=== PATIENT | male | born 1945 | race Caucasian/White ===

== ENCOUNTER 2024-05-21 20:51 | Inpatient (IN) | payer MEDICARE, MEDICAID ==
[~2024-05-21] VITALS: Ht 188 cm; Wt 81.0 kg
[~2024-05-21 20:51] MED LIST: AMLO2.5T2 PO; CARV25TA2 PO; GLUC-133 PO; HYDR-4353 PO; METF500T PO; OMEG1CAP2; PRAV10TA39 PO; SENN-362; SPIR25TA5 PO; VIT D3
[2024-05-21] MEDS: VANCOMYCIN 1,500MG inj. 1,500 MG in normal saline 500ml IV soln 300 ML IV SCH (21:53)
[2024-05-21 22:16] LABS: BASOPHILS % (AUTO) 0.3 % (0-1); EOSINOPHILS % (AUTO) 0.1 % (0-6); HEMATOCRIT 35.4 % (42.0-52.0); HEMOGLOBIN 12.1 g/dl (14.0-17.9); LYMPHOCYTES # (AUTO) 1.1 X10'3 (1.1-4.8); LYMPHOCYTES % (AUTO) 11.3 % (21-51); MEAN CORPUSCULAR HEMOGLOBIN 29.3 PG (27.0-31.0); MEAN CORPUSCULAR VOLUME 86.3 FL (78-98); MONOCYTES # (AUTO) 1.2 X10'3 (0-0.9); NEUTROPHILS # (AUTO) 7.6 X10'3 (1.8-7.7); NEUTROPHILS % (AUTO) 76.3 % (42-75); PLATELET COUNT 113 X10'3 (140-440); RED BLOOD COUNT 4.11 X10'6 (4.70-6.10); RED CELL DISTRIBUTION WIDTH 16.8 % (11.5-14.5); WHITE BLOOD COUNT 9.9 X10'3 (4.5-11.0)
[2024-05-21 22:26] LABS: ALANINE AMINOTRANSFERASE 102 U/L (12-78); ALBUMIN 2.3 G/DL (3.4-5.0); ALBUMIN/GLOBULIN RATIO 0.5 (1.1-1.5); ALKALINE PHOSPHATASE 128 IU/L (46-116); ANION GAP 5 (8-16); ASPARTATE AMINO TRANSFERASE 106 U/L (10-37); BILIRUBIN,TOTAL 0.9 MG/DL (0.1-1.0); BLOOD UREA NITROGEN 14 MG/DL (7-18); BUN/CREATININE RATIO 15.6 (10.0-20.0); CHLORIDE 102 MMOL/L (99-107); GLUCOSE 160 MG/DL (70-104); POTASSIUM 4.3 MMOL/L (3.5-5.1); SODIUM 135 MMOL/L (135-145); TOTAL CARBON DIOXIDE 28.2 MMOL/L (24-32); TOTAL PROTEIN 7.2 G/DL (6.4-8.2); eCRCL 78 ML/MIN; eGFR 82 ML/MIN
[2024-05-21] MEDS: normal saline 1000ml 1,000 ML IV ONE ×2 (22:52→23:36)
[2024-05-21] MEDS ORDERED: magnesium hydroxide 30ml (MOM) UD suspension PO PRN (23:40)
[2024-05-21] MEDS ORDERED: magnesium sulf-water 4G/100mL 100 ML IV PRN (23:40)
[2024-05-21] MEDS ORDERED: ondansetron/PF 4mg/2ml inj IV PRN (23:40)
[2024-05-21] MEDS ORDERED: magnesium Cl slow-release 64mg tablet PO PRN (23:40)
[2024-05-21] MEDS ORDERED: magnesium sulf-water 2g/50mL 50 ML IV PRN (23:40)
[2024-05-21] MEDS ORDERED: morphine 2 MG/ML inj. syringe IV PRN (23:40)
[2024-05-21] MEDS ORDERED: mag hydrox/Alum hydrox/simeth 30ml oral suspension PO PRN (23:40)
[2024-05-21] MEDS ORDERED: acetaminophen 325mg tablet PO PRN (23:40)
[2024-05-21] MEDS ORDERED: potassium Cl 20 mEq SR tablet PO PRN ×2 (23:40)
[2024-05-21] MEDS ORDERED: potassium Cl 40MEQ/1/2NS 520ml 520 ML IV PRN (23:40)
[2024-05-22] VITALS (7 sets, daily range): BP systolic 117–133; BP diastolic 55–69; PULSE 58–87; RESP 14–15; TEMP 98–98.4; O2SAT 97–100
[2024-05-22] LABS: HEMOGLOBIN A1C 5.1 % (4.5-6.2)
[2024-05-22] MEDS: normal saline 1000ml 1,000 ML IV SCH (00:28)
[2024-05-22] MEDS: ceFAZolin/D5W- 1GM premix 50 ML IV SCH (00:33)
[2024-05-22 01:46] LABS: BILIRUBIN,URINE NEGATIVE (Neg); CLARITY,URINE CLEAR (Clear); COLOR,URINE YELLOW (Yellow); GLUCOSE, URINE NEGATIVE (Neg); KETONES,URINE NEGATIVE (Neg); LEUKOCYTE ESTERASE ,URINE NEGATIVE (Neg); NITRITES, URINE NEGATIVE (Neg); OCCULT BLOOD,URINE TRACE-INTACT (Neg); PH,URINE 5.5 (4.8-8.0); PROTEIN,URINE 30 mg/dl (Neg)
[2024-05-22 01:48] LABS: UA COLLECTION TYPE NON-SPECIFIED
[2024-05-22 01:59] LABS: BACTERIA,URINE NONE SEEN /HPF (Neg); RBC,URINE 0-2 /HPF (0-2); SQUAMOUS EPITHELIAL CELL,UR FEW /LPF (FEW); WBC,URINE 0-4 /HPF (0-4)
[2024-05-22] MEDS ORDERED: ATOR10TA87 PO (04:34)
[2024-05-22] MEDS ORDERED: BISA10SU60 RC (04:56)
[2024-05-22] MEDS ORDERED: SENN-360 PO (05:05)
[2024-05-22] MEDS ORDERED: LISI2.5T14 PO (05:05)
[2024-05-22] MEDS ORDERED: DOCU-148 PO (05:05)
[2024-05-22] MEDS ORDERED: FAMO-280 PO (05:05)
[2024-05-22] MEDS ORDERED: ASPI-611 PO (05:05)
[2024-05-22] MEDS ORDERED: POLY119P2 PO (05:05)
[2024-05-22] MEDS ORDERED: FERR325T28 PO (05:05)
[2024-05-22] MEDS: K and/or MAG REPLACEMENT MC SCH (08:00)
[2024-05-22] MEDS: heparin, porcine 5000 units/ml vial SQ SCH (08:00)
[2024-05-22] MEDS: docusate sod 100mg capsule PO SCH (08:00)
[2024-05-22 09:10] LABS: BASOPHILS % (AUTO) 0.3 % (0-1); EOSINOPHILS % (AUTO) 0.1 % (0-6); HEMATOCRIT 33.4 % (42.0-52.0); HEMOGLOBIN 11.3 g/dl (14.0-17.9); LYMPHOCYTES # (AUTO) 1.1 X10'3 (1.1-4.8); LYMPHOCYTES % (AUTO) 12.7 % (21-51); MEAN CORPUSCULAR HEMOGLOBIN 29.8 PG (27.0-31.0); MEAN CORPUSCULAR VOLUME 87.7 FL (78-98); MEAN PLATELET VOLUME 9.1 FL (7.4-10.4); MONOCYTES # (AUTO) 1.1 X10'3 (0-0.9); MONOCYTES % (AUTO) 13.2 % (2-12); NEUTROPHILS # (AUTO) 6.1 X10'3 (1.8-7.7); NEUTROPHILS % (AUTO) 73.7 % (42-75); PLATELET COUNT 99 X10'3 (140-440); RED CELL DISTRIBUTION WIDTH 16.7 % (11.5-14.5); WHITE BLOOD COUNT 8.3 X10'3 (4.5-11.0)
[2024-05-22 09:26] LABS: % IRON SATURATION 15 % (11-46); IRON 28 UG/DL (53-167); TOTAL IRON BINDING CAPACITY 185 UG/DL (259-388)
[2024-05-22 09:57] LABS: ALANINE AMINOTRANSFERASE 75 U/L (12-78); ALBUMIN/GLOBULIN RATIO 0.4 (1.1-1.5); ALKALINE PHOSPHATASE 112 IU/L (46-116); ANION GAP 7 (8-16); ASPARTATE AMINO TRANSFERASE 72 U/L (10-37); BILIRUBIN,TOTAL 0.8 MG/DL (0.1-1.0); BLOOD UREA NITROGEN 12 MG/DL (7-18); BUN/CREATININE RATIO 15.2 (10.0-20.0); CALCIUM 8.3 MG/DL (8.5-10.1); CHLORIDE 105 MMOL/L (99-107); CREATINE KINASE 44 U/L (39-308); CREATININE 0.79 MG/DL (0.60-1.10); FERRITIN 203 NG/ML (26-388); GLUCOSE 121 MG/DL (70-104); POTASSIUM 3.7 MMOL/L (3.5-5.1); SODIUM 136 MMOL/L (135-145); TOTAL CARBON DIOXIDE 23.8 MMOL/L (24-32); TOTAL PROTEIN 6.5 G/DL (6.4-8.2); eCRCL 88 ML/MIN; eGFR > 90 ML/MIN
[2024-05-22] MEDS: CefTRIAXone/D5W-Rocephin 1gm 50 ML IV ONE (10:06)
[2024-05-22] MEDS: vancomycin/NS 1 GM ADD-VANTAGE 250 ML IV SCH (10:38)
[2024-05-22] MEDS ORDERED: CHOL10006 PO (14:33)
[2024-05-22] MEDS ORDERED: docusate sod 100mg capsule PO SCH (20:00)
[2024-05-22] MEDS: lisinopril 2.5mg tablet PO SCH (20:10)
[2024-05-22] MEDS: atorvastatin 10mg tablet PO SCH (20:10)
[2024-05-23 06:00] VITALS: BP 126/72; PULSE 72; RESP 13; TEMP 96.6; O2SAT 96
[2024-05-23] MEDS: aspirin 81mg, enteric-coated 1 TAB TABLET.DR PO SCH (07:54)
[2024-05-23] MEDS: CefTRIAXone/D5W-Rocephin 1gm 50 ML IV SCH (07:55)
[2024-05-23] MEDS: polyethylene glycol 3350 17gm powd pack PO SCH (07:55)
[2024-05-23 08:00] VITALS: BP 153/73; PULSE 75; RESP 16; O2SAT 96
[2024-05-23] MEDS: VANCOMYCIN LEVEL IV ONE (09:30)
[2024-05-23 09:58] LABS: BASOPHILS % (AUTO) 0.8 % (0-1); EOSINOPHILS % (AUTO) 0.4 % (0-6); HEMATOCRIT 35.2 % (42.0-52.0); HEMOGLOBIN 11.7 g/dl (14.0-17.9); LYMPHOCYTES # (AUTO) 1.2 X10'3 (1.1-4.8); LYMPHOCYTES % (AUTO) 18.5 % (21-51); MEAN CORPUSCULAR HEMOGLOBIN 28.8 PG (27.0-31.0); MEAN CORPUSCULAR HGB CONC 33.3 g/dL (33.0-36.5); MEAN CORPUSCULAR VOLUME 86.4 FL (78-98); MEAN PLATELET VOLUME 8.7 FL (7.4-10.4); MONOCYTES # (AUTO) 0.6 X10'3 (0-0.9); MONOCYTES % (AUTO) 9.6 % (2-12); NEUTROPHILS # (AUTO) 4.5 X10'3 (1.8-7.7); NEUTROPHILS % (AUTO) 70.7 % (42-75); PLATELET COUNT 111 X10'3 (140-440); RED BLOOD COUNT 4.07 X10'6 (4.70-6.10); RED CELL DISTRIBUTION WIDTH 16.8 % (11.5-14.5); WHITE BLOOD COUNT 6.4 X10'3 (4.5-11.0)
[2024-05-23 10:00] VITALS: BP 153/73; PULSE 75; RESP 18; TEMP 98.1; O2SAT 97
[2024-05-23 10:24] LABS: ALANINE AMINOTRANSFERASE 84 U/L (12-78); ALBUMIN 1.8 G/DL (3.4-5.0); ALBUMIN/GLOBULIN RATIO 0.4 (1.1-1.5); ALKALINE PHOSPHATASE 107 IU/L (46-116); ANION GAP 7 (8-16); ASPARTATE AMINO TRANSFERASE 97 U/L (10-37); BILIRUBIN,TOTAL 0.5 MG/DL (0.1-1.0); BLOOD UREA NITROGEN 9 MG/DL (7-18); BUN/CREATININE RATIO 13.6 (10.0-20.0); CALCIUM 8.2 MG/DL (8.5-10.1); CHLORIDE 106 MMOL/L (99-107); CREATININE 0.66 MG/DL (0.60-1.10); GLUCOSE 108 MG/DL (70-104); MAGNESIUM 1.9 MG/DL (1.5-2.4); POTASSIUM 3.9 MMOL/L (3.5-5.1); SODIUM 138 MMOL/L (135-145); TOTAL PROTEIN 6.2 G/DL (6.4-8.2); eCRCL 106 ML/MIN; eGFR > 90 ML/MIN
[2024-05-23] MEDS: calcium carbonate 500mg chew tablet PO PRN (12:18)
[2024-05-23 18:00] VITALS: BP 127/59; PULSE 78; RESP 19; TEMP 97.6; O2SAT 98
[2024-05-23] MEDS: lactose-reduced food (Ensure Enlive) - 237ml bottle PO SCH (18:00)
[2024-05-23 20:00] VITALS: BP 139/75; PULSE 72; RESP 16; O2SAT 98
[2024-05-23 22:00] VITALS: BP 144/91; PULSE 90; RESP 19; TEMP 97.8; O2SAT 100
[2024-05-23] MEDS: pantoprazole 40mg Tablet.DR PO ONE (23:21)
[2024-05-24] MEDS: calcium carbonate 500mg chew tablet PO ONE (02:29)
[2024-05-24 05:18] LABS: BASOPHILS % (AUTO) 0.4 % (0-1); EOSINOPHILS % (AUTO) 0.5 % (0-6); LYMPHOCYTES % (AUTO) 19.1 % (21-51); MEAN CORPUSCULAR HGB CONC 33.2 g/dL (33.0-36.5); MEAN CORPUSCULAR VOLUME 87.2 FL (78-98); MEAN PLATELET VOLUME 8.8 FL (7.4-10.4); MONOCYTES # (AUTO) 0.6 X10'3 (0-0.9); MONOCYTES % (AUTO) 11.9 % (2-12); NEUTROPHILS # (AUTO) 3.5 X10'3 (1.8-7.7); NEUTROPHILS % (AUTO) 68.1 % (42-75); PLATELET COUNT 122 X10'3 (140-440); RED BLOOD COUNT 3.78 X10'6 (4.70-6.10); RED CELL DISTRIBUTION WIDTH 16.4 % (11.5-14.5); WHITE BLOOD COUNT 5.2 X10'3 (4.5-11.0)
[2024-05-24 05:45] LABS: ALANINE AMINOTRANSFERASE 75 U/L (12-78); ALBUMIN 1.7 G/DL (3.4-5.0); ALBUMIN/GLOBULIN RATIO 0.4 (1.1-1.5); ALKALINE PHOSPHATASE 120 IU/L (46-116); ANION GAP 9 (8-16); ASPARTATE AMINO TRANSFERASE 76 U/L (10-37); BILIRUBIN,TOTAL 0.4 MG/DL (0.1-1.0); BLOOD UREA NITROGEN 15 MG/DL (7-18); BUN/CREATININE RATIO 24.2 (10.0-20.0); CALCIUM 8.4 MG/DL (8.5-10.1); CHLORIDE 107 MMOL/L (99-107); CREATININE 0.62 MG/DL (0.60-1.10); GLUCOSE 131 MG/DL (70-104); MAGNESIUM 1.8 MG/DL (1.5-2.4); POTASSIUM 3.8 MMOL/L (3.5-5.1); SODIUM 141 MMOL/L (135-145); TOTAL CARBON DIOXIDE 25.4 MMOL/L (24-32); TOTAL PROTEIN 5.8 G/DL (6.4-8.2); eCRCL 113 ML/MIN; eGFR > 90 ML/MIN
[2024-05-24 06:00] VITALS: BP 145/82; PULSE 90; RESP 20; TEMP 97.4; O2SAT 98
[2024-05-24 10:00] VITALS: RESP 19; O2SAT 99
== END 2024-05-24 17:05 | DRG 637 ==
LOC: ER 20:52 → ED HOLD 23:12 → SUR 3N 05-22 07:29
PROVIDERS: ADMIT Internal Medicine; ATTEND Family Medicine
DX: E11.628 Type 2 diabetes mellitus with other skin complications (principal); G93.41 Metabolic encephalopathy; E87.20 Acidosis, unspecified; I69.351 Hemiplegia and hemiparesis following cerebral infarction affecting right dominant side; I48.20 Chronic atrial fibrillation, unspecified; L03.115 Cellulitis of right lower limb; Z66 Do not resuscitate; E78.5 Hyperlipidemia, unspecified; E11.42 Type 2 diabetes mellitus with diabetic polyneuropathy; D64.9 Anemia, unspecified; I25.10 Atherosclerotic heart disease of native coronary artery without angina pectoris; F03.90 Unspecified dementia, unspecified severity, without behavioral disturbance, psychotic disturbance, mood disturbance, and anxiety; I10 Essential (primary) hypertension; Z79.84 Long term (current) use of oral hypoglycemic drugs; Z79.899 Other long term (current) drug therapy; Z95.1 Presence of aortocoronary bypass graft; I25.2 Old myocardial infarction
CPT/HCPCS: 36415; 80053; 80202; 81001; 82550; 82728; 83036; 83540; 83550; 83605; 83735; 84145; 85025; 87040; 87081; 92508; 92616; 93971; 96361; 96365; 97161; 97530; 97535; 99291; A6212; A6213; A6223; A6250; A6253; A6446; A6590; C1758; G0378; J0690; J0696; J3370; J7030; J7040

== ENCOUNTER → 2024-05-31 | Emergency (ER) | payer MEDICARE, MEDICAID ==
[~2024-05-31] VITALS: Ht 188 cm; Wt 68.0 kg
[~2024-05-31] MED LIST changes: -AMLO2.5T2 PO; +ASPI-611 PO; +ATOR10TA87 PO; +BISA10SU60 RC; -CARV25TA2 PO; +CHOL10006 PO; +DOCU-148 PO; +FERR325T28 PO; -GLUC-133 PO; -HYDR-4353 PO; +LISI2.5T14 PO; -METF500T PO; -OMEG1CAP2; +POLY119P2 PO; -PRAV10TA39 PO; +SENN-360 PO; -SENN-362; -SPIR25TA5 PO; -VIT D3; +iohexol 300mg/ml 100ml inj. ONE
[2024-05-31 10:47] VITALS: TEMP 97.6
--- NOTE | 2024-05-31 11:21 | ELECTROCARDIOGRAPH REPORT ---
[facility] Test Date: 2024-05-31 Test Time: 10:59:00 Pat Name: CARLOS RUIZ Department: EMERGENCY ROOM Room: Gender: M Family Member Caretaker: : 1945 Requested By: LAWRENCE MORALEZ Order Number: [id number] Reading MD: Dr. Lawrence Moralez Measurements Intervals [employer] Rate: 125 P: -25 MO: 154 QRS: -37 QRSD: 130 T: 24 QT: 347 QTc: 501 Interpretive Statements Sinus tachycardia Multiform ventricular premature complexes Right bundle branch block Inferior infarct, old Electronically Signed On 05-31-2024 12:26:[address] Lawrence Moralez Please click the below link to view image of tracing.
[2024-05-31 11:44] LABS: BASOPHILS % (AUTO) 0.5 % (0-1); EOSINOPHILS % (AUTO) 0.1 % (0-6); HEMATOCRIT 35.9 % (42.0-52.0); HEMOGLOBIN 12.2 g/dl (14.0-17.9); LYMPHOCYTES # (AUTO) 1.3 X10'3 (1.1-4.8); LYMPHOCYTES % (AUTO) 20.4 % (21-51); MEAN CORPUSCULAR HEMOGLOBIN 29.6 PG (27.0-31.0); MEAN CORPUSCULAR VOLUME 86.9 FL (78-98); MEAN PLATELET VOLUME 8.3 FL (7.4-10.4); MONOCYTES # (AUTO) 0.9 X10'3 (0-0.9); MONOCYTES % (AUTO) 13.7 % (2-12); NEUTROPHILS # (AUTO) 4.3 X10'3 (1.8-7.7); NEUTROPHILS % (AUTO) 65.3 % (42-75); PLATELET COUNT 164 X10'3 (140-440); RED BLOOD COUNT 4.13 X10'6 (4.70-6.10); RED CELL DISTRIBUTION WIDTH 17.2 % (11.5-14.5); WHITE BLOOD COUNT 6.6 X10'3 (4.5-11.0)
--- NOTE | 2024-05-31 11:54 | RADIOLOGY REPORT ---
EXAM: DI CHEST,SINGLE VIEW HISTORY: CP COMPARISON: None TECHNIQUE: Portable upright AP view of the chest was performed. FINDINGS: No pneumothorax, consolidative infiltrates, or pulmonary edema. The heart is borderline enlarged. The re are postoperative changes of median sternotomy and left chest pacemaker. There is mild thoracic de xtroscoliosis. IMPRESSION: Postoperative changes of the heart without evidence of acute intrathoracic process.
[2024-05-31 12:01] LABS: ALANINE AMINOTRANSFERASE 56 U/L (12-78); ALBUMIN 3.3 G/DL (3.4-5.0); ALBUMIN/GLOBULIN RATIO 0.6 (1.1-1.5); ALKALINE PHOSPHATASE 131 IU/L (46-116); ANION GAP 10 (8-16); ASPARTATE AMINO TRANSFERASE 39 U/L (10-37); BILIRUBIN,TOTAL 1.3 MG/DL (0.1-1.0); BLOOD UREA NITROGEN 19 MG/DL (7-18); BUN/CREATININE RATIO 18.1 (10.0-20.0); CALCIUM 9.3 MG/DL (8.5-10.1); CHLORIDE 98 MMOL/L (99-107); CREATININE 1.05 MG/DL (0.60-1.10); GLUCOSE 156 MG/DL (70-104); POTASSIUM 4.4 MMOL/L (3.5-5.1); SODIUM 133 MMOL/L (135-145); TOTAL CARBON DIOXIDE 25.1 MMOL/L (24-32); TOTAL PROTEIN 8.9 G/DL (6.4-8.2); eCRCL 56 ML/MIN; eGFR 68 ML/MIN
[2024-05-31 12:07] LABS: PRO BRAIN NATRIURETIC PEPTIDE 313 PG/ML (0-450)
--- NOTE | 2024-05-31 13:24 | Physician Documentation ---
History of Present Illness Chief Complaint: Abdominal Pain Stated Complaint: GASTRIC PAIN Time Seen by MD: 13:22 OK to notify your PCP?: Yes Primary Medical Doctor: chito ([place]) Source: patient, RN/, RN notes reviewed, old records Mode of Arrival: POV Exam Limitations: no limitations HPI 79 year old male presents to the emergency department via EMS for complaints of abdominal pain form [facility]. HPI per [facility]: 79 year old male with severe dementia, hypertension, hyperlipidemia, CVA, right hemiparesis, chronic afib, DM who has a resident of [facility] was brought in from the facility with a chief complaints of severe right lower extremity redness and swelling since the past two days. The patient is altered, oriented to self and is not a reliable historian most likely secondary to his dementia. This is apparently his baseline as per the ER physician report. The transfer notes from [facility] stated that the patient developed a rash on the right extremity. They also reported suspicion regarding the rash being a reaction to Tylenol with the patient was the left and also more swollen when compared to the left. The patient currently denied any concerns or complaints. He stated that he is doing fine and denied any pain or any discomfort in his right lower extremity at the moment. He denies any recent fevers or chills. He stated that he has a history of stroke in the past and has a history of stroke in the past and residual right sided weakness. Per documentation provided from [facility] patient has a DNR status. Medication Reconciliation Allergies: Coded Allergies: No Known Allergies (Unverified , 01/03/14) Scheduled Aspirin (Aspir 81), 1 TAB PO DAILY, (Reported) Atorvastatin Calcium* (Lipitor*), 1 TAB PO HS, (Reported) Bisacodyl (Dulcolax), 2 SUPP RC DAILY, (Reported) Cholecalciferol (Vitamin D), 2,000 CAP PO DAILY, (Reported) Docusate Sodium (Colace), 1 CAP PO Q12H, (Reported) Ferrous Sulfate* (Ferrous Sulfate*), 1 TAB PO DAILY, (Reported) Lisinopril (Lisinopril), 1 TAB PO HS, (Reported) Polyethylene Glycol 3350 (Miralax), 17 GM PO DAILY, (Reported) Sennosides (Senna), 2 TAB PO PRN, (Reported) Past Medical History Past Medical History: Peripheral Neuropathy, Coronary Artery Disease, Myocardial Infarction, Renal Disease, Diabetes Past Surgical History: coronary bypass surgery, pacemaker, other Patient History: (CAD) Coronary arteriosclerosis FATHER (DM Type 2) Diabetes mellitus type 2 brother sister Alcohol Use: Rarely Drug Use: none Lives with: Spouse Lives In: Home Occupation: retired Review of Systems ROS Unable to obtain ROS. Physical Exam Vital Signs: RN Vital Signs have been reviewed: Yes, Temperature: 97.6, Source: Oral, Heart Rate: 118, Respiratory Rate: 17, BP: 103/69, Pulse Oximetry: 98, Weight: 68.000 Oxygen Flow Rate: 4.0 Pulse Oximetry Reflects: adequate oxygenation Physical Exam General: The patient is well developed, well nourished, nontoxic appearing and is in no acute distress. Skin: [place], warm and dry with no rashes. HEENT: Head was normocephalic and atraumatic. Eyes - pupils equal, round, reactive to light and accommodation. Extraocular movements were intact. Conjunctivae were nonicteric. Ears - bilateral tympanic membranes were normal. The mouth and oropharynx were clear with moist mucous membranes. There were no pharyngeal exudates or erythema. Neck: Supple and nontender. There was no jugular venous distention, lymphadenopathy, thyromegaly or masses. Chest: Midline scar over chest. Clear to auscultation bilaterally without wheezes, rales or rhonchi. No accessory muscle use. No dullness to percussion. Heart: Rapid heart rate. S1, S2. No murmurs. Palpation of the chest wall was normal. No rubs or thrills. Abdomen: Soft, nontender and nondistended. Positive bowel sounds. No guarding or rebound. No hepatosplenomegaly or palpable masses. Extremities: Trace edema to lower extremities. The patient moves all extremities. Pulses were equal and symmetric. Neurologic: Cranial nerves II-XII were intact. Sensation was intact to light touch throughout. Motor strength was 5/5 in all four extremities. Deep tendon reflexes were intact in both upper and lower extremities. Psychologic: The patient was oriented to person, place and time. The patient demonstrated appropriate judgement and insight. Progress Results/Orders Reviewed/noted all lab results: Yes Results/Orders Orders - POWER PIMENTEL MD Electrocardiogram (05/31/24 10:57) Chest,Single View (05/31/24 11:41) Monitor (05/31/24 11:25) Saline Lock (05/31/24 11:25) Oxygen (05/31/24 11:25) Hs Troponin I W Calculations (05/31/24 13:25) Hs Troponin I W Calculations (05/31/24 14:25) Completed Orders - POWER PIMENTEL MD Electrocardiogram (05/31/24 10:57) Chest,Single View (05/31/24 11:41) Cbc/Diff (05/31/24 11:25) PBNP (05/31/24 11:25) CMP (05/31/24 11:25) Hs Troponin I W Calculations (05/31/24 11:25) Vital Signs 05/31/24 05/31/24 05/31/24 10:47 11:02 11:11 Temp 97.6 Pulse 124 118 Resp 22 12 17 B/P (MAP) 119/86 103/69 (80) Pulse Ox 98 98 O2 Flow Rate 4.0 Laboratory Tests Test 05/31/24 11:36 White Blood Count 6.6 Red Blood Count 4.13 L Hemoglobin 12.2 L Hematocrit 35.9 L Mean Corpuscular Volume 86.9 Mean Corpuscular Hemoglobin 29.6 Mean Corpuscular Hemoglobin Concent 34.0 Red Cell Distribution Width 17.2 H Platelet Count 164 Mean Platelet Volume 8.3 Neutrophils (%) (Auto) 65.3 Lymphocytes (%) (Auto) 20.4 L Monocytes (%) (Auto) 13.7 H Eosinophils (%) (Auto) 0.1 Basophils (%) (Auto) 0.5 Neutrophils # (Auto) 4.3 Lymphocytes # (Auto) 1.3 Monocytes # (Auto) 0.9 Eosinophils # (Auto) 0.0 Basophils # (Auto) 0.0 CBC Comment Sodium Level 133 L Potassium Level 4.4 Chloride Level 98 L Carbon Dioxide Level 25.1 Anion Gap 10 Blood Urea Nitrogen 19 H Creatinine 1.05 Estimated GFR/1.73 m2 68 BUN/Creatinine Ratio 18.1 Glucose Level 156 H Calcium Level 9.3 Total Bilirubin 1.3 H Aspartate Amino Transf (AST/SGOT) 39 H Alanine Aminotransferase (ALT/SGPT) 56 Alkaline Phosphatase 131 H Troponin I High Sensitivity 7 Pro-B-Type Natriuretic Peptide 313 Total Protein 8.9 H Albumin 3.3 L Globulin 5.6 H Albumin/Globulin Ratio 0.6 L Chemistry Comments Re-Evaluation Re-Evaluation : Re-Evaluation: Improved Progress Patient was seen and examined. Patient was given reassurance. The patient received fluids for his abdominal pain and presumed constipation. Cat scan of the abdomen and pelvis was reassuring. Patient received lactulose and Dulcolax suppositories. With time he has been feeling much better and ultimately was discharged back home. Patient's laboratory work showed no elevated white count WBC is 6 and no left shift. Hemoglobin hematocrit is 12 and 35.9. Coagulations are within normal limits. Chemistry showed some borderline hyponatremia with a sodium of 133. Creatinine is normal at 1.05 glucose 156 bilirubin slightly elevated at 1.3. AST slightly elevated at 39 out phos 131. Patient otherwise is doing well and was then discharged home. Continuous panel monitor interpretation initially showed sinus tachycardia heart rate 120s, abnormal, my interpretation. At time of discharge pulse oximetry monitor interpretation showed sinus tachycardia low 100s, my interpretation. Pulse oximetry monitor interpretation shows normal oxygenation 98% room air, normal, my interpretation. EKG/XRAY/CT/US/VASC/MRI EKG : Intepreting Monitor?: Yes Additional Comment Ordering Physician: POWER PIMENTEL MD Exam Name: ELECTROCARDIOGRAM Technologist: [facility] Test Date: 2024-05-31 Test Time: 10:59:00 Pat Name: CARLOS RUIZ Department: EMERGENCY ROOM Room: Gender: Aoc Director Intelligence Officer: : 1945 Requested By: POWER PIMENTEL Order Number: [id number] Reading MD: Dr. Power Pimentel Measurements Intervals [place] Rate: 125 P: -25 [place]: 154 QRS: -37 QRSD: 130 T: 24 QT: 347 QTc: 501 Interpretive Statements Sinus tachycardia Multiform ventricular premature complexes Right bundle branch block Inferior infarct, old Electronically Signed On 05-31-2024 12:26:[address] Power Pimentel Chest X-Ray : Additional Comments EXAM: DI CHEST,SINGLE VIEW HISTORY: CP COMPARISON: None TECHNIQUE: Portable upright AP view of the chest was performed. FINDINGS: No pneumothorax, consolidative infiltrates, or pulmonary edema. The heart is borderline enlarged. There are postoperative changes of median sternotomy and left chest pacemaker. There is mild thoracic dextroscoliosis. IMPRESSION: Postoperative changes of the heart without evidence of acute intrathoracic process. Electronically Signed by:BRANDEN MANN MD Date & Time: 05/31/[address] : Impression CLINICAL INFORMATION: Abdominal pain. TECHNIQUE: Axial CT images of the abdomen and pelvis were obtained after the uneventful administration of 100 mL Omnipaque 300 IV contrast. Coronal and sagittal reformatted images were obtained, reviewed, and stored. All CT scans at this medical facility are performed using dose modulation techniques as appropriate to a performed exam including the following: Automated exposure control was utilized; adjustment of the MA and/or KV according to patient size; and use of iterative reconstruction technique. CTDIvol = 23.14 mGy DLP = 1294.36 mGy-cm COMPARISON: None FINDINGS: Lung bases: Atelectasis in the lung bases. Respiratory motion artifact limits evaluation for subtle findings. Small to moderate hiatal hernia. Liver: Hepatic steatosis. Small subcentimeter low-attenuation lesions in the liver are most likely cysts, although some are too small to characterize. Biliary: Layering calcification in the gallbladder consistent with layering g allstones. Spleen: Unremarkable. Pancreas: Unremarkable. No inflammatory changes, ductal dilatation, or mass identified. Adrenal glands: Unremarkable. No mass. Kidneys: Right kidney is surgically absent. Left renal cyst measures up to 8.1 cm in greatest dimension. No hydronephrosis. Aorta/Vascular: Dense atherosclerotic calcification. No abdominal aortic aneurysm. Retroperitoneum: No mass or lymphadenopathy. Bowel/mesentery: No small bowel obstruction. No free air or free fluid. Appendix is visualized and appears unremarkable. Moderate stool throughout the colon. Dense stool in the rectum. Pelvic organs: Enlarged prostate with impression on the bladder base. Bladder: Bladder is underdistended, limiting evaluation. [id number] circumferential thickening of the bladder wall. Abdominal wall: Mild anasarca. Bones: No acute fracture or focal intraosseous lesion. IMPRESSION: 1. No small bowel obstruction. 2. Moderate stool in the colon with dense stool in the rectum. 3. Circumferential thickening of the bladder wall is nonspecific. Correlate clinically to exclude cystitis. 4. Hepatic steatosis. 5. Cholelithiasis. 6. Additional findings as detailed above Electronically Signed by:SATURNINO SANCHEZ DO Date & Time: 05/31/24 1500 Ultrasound : Impression EXAM: US Abdomen Limited, Right Upper Quadrant CLINICAL INDICATION: RUQ pain TECHNIQUE: Real-time ultrasound of the right upper quadrant with image documentation. COMPARISON: None FINDINGS: LIVER: Liver measures up to 13.2 cm. No intrahepatic bile duct dilation. GALLBLADDER: Cholelithiasis and possible gallbladder polyps. Hicks's sign was not reported by associate buyer. COMMON BILE DUCT: Unremarkable as visualized. No stones. No dilation. Common bile duct measures 0.2 cm in diameter. PANCREAS: Pancreas not visualized. RIGHT KIDNEY: Right kidney not visualized. No stones. OTHER FINDINGS: . . . IMPRESSION: No acute findings in the right upper quadrant. Electronically Signed by:MAMADOU CARRERO MD Date & Time: 05/31/24 1601 Medical Decision Making Additional info obtained from: old records Differential Dx:Considerations: Include: Bowel obstruction, Cholangitis, Cholelithasis, Constipation, Diverticular disease, Esophageal rupture, Esophagitis, Gastritis/PUD, Gastroenteritis, GI hemorrhage, Hernia, Hepatitis, Inflammatory BD, Ischemic bowel, Pancreatitis, Porphyria, Testicular torsion, Trauma, intraabdominal, Urinary obstruction, Urinary tract infection, Urolithiasis, Other Departure Time of Disposition: 15:43 Disposition: 01 HOME / SELF CARE / HOMELESS Impression: Primary Impression: Abdominal pain Qualified Codes: R10.84 - Generalized abdominal pain Additional Impression: Constipation Qualified Codes: K59.00 - Constipation, unspecified Condition: Stable Discharge Instructions: Constipation, Adult, [id number] Referrals: NO PRIMARY CARE PROVIDER (PCP) Education Educated: Patient Educated regarding: diagnosis, treatment, prognosis, need for follow up Signature Scribe Signature: Scribed for Power Pimentel MD by Mayra Marie . 05/31/24 13:46 Attestation: The note accurately reflects work and decisions made by me.Power Pimentel MD 05/31/24 13:23 POWER PIMENTEL MD May 31, 2024 13:24 MAYRA GARCIA May 31, 2024 13:45
[2024-05-31 13:44] LABS: APTT 25 SECONDS (22-32); INR 1.1 INR; PROTHROMBIN TIME 11.3 SECONDS (9.0-12.0)
[2024-05-31 13:52] LABS: LIPASE 53 U/L (16-77)
[2024-05-31] MEDS: normal saline 1000ml 1,000 ML IV ONE (14:57)
--- NOTE | 2024-05-31 15:03 | RADIOLOGY REPORT ---
CLINICAL INFORMATION: Abdominal pain. TECHNIQUE: Axial CT images of the abdomen and pelvis were obtained after the uneventful administrati on of 100 mL Omnipaque 300 IV contrast. Coronal and sagittal reformatted images were obtained, review ed, and stored. All CT scans at this medical facility are performed using dose modulation techniques as appropriate to a performed exam including the following: Automated exposure control was utilized; adjustment of the MA and/or KV according to patient size; and use of iterative reconstruction techn[employer]allatech ue. CTDIvol = 23.14 mGy DLP = 1294.36 mGy-cm COMPARISON: None FINDINGS: Lung bases: Atelectasis in the lung bases. Respiratory motion artifact limits evaluation for subtle f indings. Small to moderate hiatal hernia. Liver: Hepatic steatosis. Small subcentimeter low-attenuation lesions in the liver are most likely c ysts, although some are too small to characterize. Biliary: Layering calcification in the gallbladder consistent with layering gallstones. Spleen: Unremarkable. Pancreas: Unremarkable. No inflammatory changes, ductal dilatation, or mass identified. Adrenal glands: Unremarkable. No mass. Kidneys: Right kidney is surgically absent. Left renal cyst measures up to 8.1 cm in greatest dimensi on. No hydronephrosis. Aorta/Vascular: Dense atherosclerotic calcification. No abdominal aortic aneurysm. Retroperitoneum: No mass or lymphadenopathy. Bowel/mesentery: No small bowel obstruction. No free air or free fluid. Appendix is visualized and ap pears unremarkable. Moderate stool throughout the colon. Dense stool in the rectum. Pelvic organs: Enlarged prostate with impression on the bladder base. Bladder: Bladder is underdistended, limiting evaluation. [id number] circumferential thickening of the bladder wall. Abdominal wall: Mild anasarca. Bones: No acute fracture or focal intraosseous lesion. IMPRESSION: 1. No small bowel obstruction. 2. Moderate stool in the colon with dense stool in the rectum. 3. Circumferential thickening of the bladder wall is nonspecific. Correlate clinically to exclude cys titis. 4. Hepatic steatosis. 5. Cholelithiasis. 6. Additional findings as detailed above
[2024-05-31] MEDS: bisacodyl 10mg suppository rectal RC STA (15:22)
--- NOTE | 2024-05-31 16:03 | RADIOLOGY REPORT ---
EXAM: US Abdomen Limited, Right Upper Quadrant CLINICAL INDICATION: RUQ pain TECHNIQUE: Real-time ultrasound of the right upper quadrant with image documentation. COMPARISON: None FINDINGS: LIVER: Liver measures up to 13.2 cm. No intrahepatic bile duct dilation. GALLBLADDER: Cholelithiasis and possible gallbladder polyps. Hicks's sign was not reported by son ographer. COMMON BILE DUCT: Unremarkable as visualized. No stones. No dilation. Common bile duct measures 0.2 cm in diameter. PANCREAS: Pancreas not visualized. RIGHT KIDNEY: Right kidney not visualized. No stones. OTHER FINDINGS: . . . IMPRESSION: No acute findings in the right upper quadrant.
[2024-05-31] MEDS: lactulose 20gm/30ml cup PO ONE (16:57)
[2024-05-31 17:23] VITALS: BP 126/77; PULSE 104; RESP 15; O2SAT 98
== END | disposition home or self-care (01) ==
LOC: ER 10:45
DX: K59.00 Constipation, unspecified (principal); E11.42 Type 2 diabetes mellitus with diabetic polyneuropathy; I11.9 Hypertensive heart disease without heart failure; I25.10 Atherosclerotic heart disease of native coronary artery without angina pectoris; E78.5 Hyperlipidemia, unspecified; F03.C0 Unspecified dementia, severe, without behavioral disturbance, psychotic disturbance, mood disturbance, and anxiety; Z95.0 Presence of cardiac pacemaker; Z95.1 Presence of aortocoronary bypass graft; Z79.82 Long term (current) use of aspirin
CPT/HCPCS: 36415; 71045; 74177; 76700; 80053; 83690; 83880; 84484; 85025; 85610; 85730; 93005; 96360; 96361; 99285; J7030; Q9967